=== PATIENT | male | born 1955 | race African-American/Black ===

== ENCOUNTER 2019-06-15 22:44 | Emergency (ER) | payer OTHER ==
[~2019-06-15] VITALS: Ht 185.4 cm; Wt 121.6 kg
[2019-06-15] MEDS ORDERED: ACCURETIC 20-21 EACH PO (23:09)
[2019-06-15] MEDS ORDERED: AZOPT OPHTH1 %/10 M1 OPHTHALMIC (23:10)
[2019-06-15] MEDS ORDERED: TRAVATAN Z5 ML OPHTHALMIC (23:13)
[2019-06-16 01:59] VITALS: BP 164/98
== END 2019-06-16 01:59 | disposition home or self-care (01) ==
LOC: ER 22:44
DX: M54.12 Radiculopathy, cervical region (principal); F17.210 Nicotine dependence, cigarettes, uncomplicated

== ENCOUNTER 2019-07-17 08:20 | Inpatient (IN) | payer OTHER ==
[2019-07-17] VITALS (15 sets, daily range): BP systolic 105–152; BP diastolic 67–97
[~2019-07-17] VITALS: Ht 185.4 cm; Wt 121.6 kg
[~2019-07-17 08:20] MED LIST: ACCURETIC 20-21 EACH PO; AZOPT OPHTH1 %/10 M1 OPHTHALMIC; TRAVATAN Z5 ML OPHTHALMIC
[2019-07-17 08:49] LABS: ABSOLUTE NEUTROPHILS 6.6 thou/uL (1.4-8.2); BASOPHILS 0.5 % (0.0-2.0); EOSINOPHILS 1.1 % (0.0-3.0); HEMOGLOBIN 14.7 gm/dL (14.0-18.0); LYMPHOCYTES 32.9 % (24.0-44.0); MCH 31.3 pg (26.0-34.0); MCHC 33.4 g/dL (28.0-37.0); MCV 93.6 fL (80.0-100.0); MONOCYTES 6.3 % (1.0-8.0); PLATELET COUNT 248 thou/uL (150-400); POLYS 59.2 % (36.0-66.0); RDW 14.6 % (10.5-14.5); WBC 11.1 thou/uL (4.0-11.0)
[2019-07-17 08:53] LABS: ANION GAP 8 mmol/L (7-16); BUN 14 mg/dL (7-18); CALCIUM 9.1 mg/dL (8.5-10.1); CHLORIDE 101 mmol/L (98-107); CO2 30 mmol/L (21-32); CREATININE 1.1 mg/dL (0.7-1.3); GLUCOSE 170 mg/dL (74-106); SODIUM 139 mmol/L (136-145)
[2019-07-17 08:56] LABS: APTT 27.5 Seconds (24.5-32.8); PROTIME 10.3 Seconds (9.3-11.4)
[2019-07-17 09:03] LABS: ALBUMIN 3.7 g/dL (3.4-5.0); DIRECT BILIRUBIN 0.2 mg/dL (<0.1-0.3); SGOT 13 U/L (15-37); SGPT 17 U/L (30-65); TOTAL BILIRUBIN 0.9 mg/dL (<0.1-1.0); TROPONIN-I <0.06 ng/mL (<0.06)
[2019-07-17 09:11] LABS: ALBUMIN 3.8 g/dL (3.4-5.0); TOTAL PROTEIN 7.6 g/dL (6.4-8.2)
[2019-07-17 09:53] LABS: TSH 3.146 uIU/mL (0.358-3.740)
[2019-07-17 11:12] LABS: CHOLESTEROL 162 mg/dL (<200); HDL CHOLESTEROL 32 mg/dL (>40); LDL CHOLESTEROL 103 mg/dL (<100); TC:HDL 5.1 Ratio (Not establshd); TRIGLYCERIDE 139 mg/dL (<150); VLDL 28 mg/dL (<40)
[2019-07-17] MEDS ORDERED: LIPITOR80 MG PO (11:24)
[2019-07-17] MEDS ORDERED: VIAGRA50 MG PO (11:26)
--- NOTE | 2019-07-17 12:23 | CATHLAB ---
[facility] [place] [place] [address] [place] [address] INVASIVE PROCEDURE REPORT Name: JESSICA VEGA Room #: 212-P ADM IN .R.#: [id number] Admission: 07/17/19 Attend Phys: Kin Butts, Discharge: Date of : 59 Report #: [id number] THIS REPORT FOR: //name// APPROVED REPORT Study performed: 07/17/2019 09:03:31 Patient Details Patient Status: ED Room #: The patient is a 64 year-old male Event Personnel Buddy Norton Clip Coater, Harmony Cronin RTR, OPEN HEARTH FURNACE LABORER Monitor, Roddy Up RN RN, Ricco Humphrey RTR Scrub, Toñito De Guzman RTR Scrub Procedures Performed Art Access - R femoral artery* Left Heart Cath w/or w/o Coronaries 9718872 [facility] ROGER Revasc AMI Total/Sub Single RCA C[address] w/wo Plasty Single OM 172003 Hemostasis w/ Angioseal 58234 Initial Mod Sed Same Phys/QHP Gr5y 400382 02028 Mod Sed Same Phys/QHP Ea 520587 Indication STEMI (>0 to less than or equal to 6 hours), Chest pain Risk Factors Arterial HypertensionDysplipidemia , Hypercholesterolemia, Diabetes Tobacco History () Procedure Narrative The Right Groin^ was infiltrated with 1% Lidocaine subcutaneous anesthesia. A PINNACLE 6FR Sheath #[id number] sheath was inserted into the RFA^. Coronary angiography was performed using coronary diagnostic catheters. The right coronary system was accessed and visualized with a JR4 catheter. The left coronary system was accessed and visualized with a JL4 catheter. The left ventricle was accessed and visualized with a angled pigtail catheter. Left ventricular/Aortic Valve gradient assessed via catheter pullback. Left ventriculogram was performed in 30 degree projection. Closure device was deployed with a 6 Fr ANGIOSEAL 6FR #[id number]. The patient tolerated the procedure well and there were no complications associated with the procedure. There was no hematoma. Intraoperative Conscious Sedation [address] [address] INVASIVE PROCEDURE REPORT Name: VEGAJESSICA SABRA Room #: 212-[facility] IN ..#: [id number] Admission: 07/17/19 Attend Phys: Kin Butts, Discharge: Date of : 59 Report #: [id number] Sedation start time: 09:23 Case end Time: 10:50 Fentanyl 50 mcg Versed 2.0 mg Fluoro Time: 15.30 minutes Dose: DAP 39266.60 cGycm2 4103 mGy Contrast Type and Amount: Visipaque 220 ml Coronary Angiography The patient's coronary anatomy is co- dominant. Diagnostic Cath Left Main Normal left main LAD 40-50% proximal LAD stenosis. Mild diffuse nonocclusive plaquing throughout the remainder of the LAD. Severe, sequential subtotal stenoses involving the very apical portion of the LAD. Diagonal 1 Large proximal diagonal branch with mild plaquing Circumflex Moderately large codominant circumflex. OM1 The first marginal branch exhibited a 99% mid vessel stenosis OM2 Small distally arising second marginal branch with moderate plaquing Right Coronary Complete occlusion of the mid right coronary. Long diffusely diseased, severe stenosis involving most of the mid and proximal portions of the right coronary. Left Ventriculography The left ventricle is normal in size with normal contractility. The left ventricular ejection fraction is estimated to be 55-60%. Left ventricular wall motion abnormalities are present. There is 1+ mitral insufficiency. Distal inferior wall hypokinesis Hemodynamics The aortic pressure is 163/98 mmHg with a mean of 124 mmHg. The left ventricular pressure is 120/14 mmHg with a mean of mmHg. The left ventricular end diastolic pressure is 28 mmHg. PCI Technique Lesion Anticoagulation was achieved with Heparin, Integrilin. Patient was preloaded with Effient. Percutaneous coronary intervention was performed on the mid right coronary artery. The lesion stenosis prior to intervention was 100% with SOTERO 0 flow. A LAUNCHER 6FR JR 4 #[id number] Guide Catheter was used to engage the right coronary ostium. A Luge Wire .014 x 182CM #[id number] Interventional Guidewire was used to [facility] [place] [place] [address] [place] [address] INVASIVE PROCEDURE REPORT Name: JESSICA VEGA Room #: 212-P ADM IN M.R.#: [id number] Admission: 07/17/19 Attend Phys: Kin Butts, Discharge: Date of : 59 Report #: [id number] cross the lesion. BALLOON DILATION A Balloon catheter Euphora RX 2.25 x 10 #[id number] was inserted and inflated up to 8.00atm for 24seconds. Repeat angiography revealed the following post-dilatation results: SOTERO 2 flow restored following angioplasty. Severe diffuse disease throughout most of the right coronary. Additional Inflation: 14.00atm for 22seconds. Additional Inflation: 14.00atm for 27seconds. Additional inflation: 16 rosa for 10 seconds Additional inflation: 15 rosa for 29 seconds STENT DEPLOYMENT A drug-eluting stent RESOLUTE SUNNY RX 2.75 X 38 #[id number] was inserted and inflated up to 14.00atm for 29seconds. POST STENT DEPLOYMENT BALLOON DILATION A Balloon catheter TREK NC RX 3.0 X 15 #[id number] was inserted and inflated up to 10.00atm for 30seconds. Additional Inflation: 14.00atm for 31seconds. Additional Inflation: 18.00atm for 31seconds. Final angiography reveals 0 % stenosis with SOTERO 3 flow. PCI Technique Lesion 2 Percutaneous Coronary Intervention was performed on the proximal right coronary artery. The lesion stenosis prior to intervention was 90% with SOTERO 3 flow. A LAUNCHER 6FR JR 4 #[id number] Guide Catheter was used to engage the ostium. A Luge Wire .014 x 182CM #[id number] Interventional Guidewire was used to cross the lesion. Stent Deployment A drug-eluting stent RESOLUTE SUNNY RX 3.0 X 26 #[id number] was inserted and inflated up to 16.00atm for 27seconds. Post Stent Deployment Balloon Dilation A Balloon catheter TREK NC RX 3.0 X 15 #[id number] was inserted and inflated up to 22.00atm for 25seconds. Final angiography reveals 0 % stenosis with SOTERO 3 flow. Comments This 3.0 x 26 mm Resolute was placed in sequence with the mid right coronary stent. Both stents were postdilated with a noncompliant balloon. PCI Technique Lesion [address] [facility] [place] [place] [address] [address] INVASIVE PROCEDURE REPORT Name: JESSICA VEGA Room #: 212-P [facility] IN .R.#: [id number] Admission: 07/17/19 Attend Phys: Kin Butts, Discharge: Date of : 59 Report #: [id number] Percutaneous Coronary Intervention was performed on the first obtuse marginal branch segment. The lesion stenosis prior to intervention was 99% with SOTERO 3 flow. A LAUNCHER 6FR EBU 3.5 #510791 Guide Catheter was used to engage the ostium. A Luge Wire .014 x 182CM #[id number] Interventional Guidewire was used to cross the lesion. Balloon Dilation A Balloon catheter Euphora RX 2.25 x 10 #[id number] was inserted and inflated up to 8.00atm for 15seconds. Additional Inflation: 10.00atm for 28seconds. Additional Inflation: 10.00atm for 29seconds. Additional inflation: 10 rosa for 31 seconds Stent Deployment A drug-eluting stent RESOLUTE SUNNY RX 2.25 X 18 #[id number] was inserted and inflated up to 16.00atm for 30seconds. A second drug-eluting stent Resolute Sunny RX 2.5 x 8 was inserted proximal to 2.25 x 18 Resolute [place] and inflated up to 12 rosa for 30 seconds. Post Stent Deployment Balloon Dilation A Balloon catheter TREK NC RX 2.5 X 12 #[id number] was inserted and inflated up to 12.00atm for 29seconds. Additional Inflation: 16.00atm for 38seconds. Additional Inflation: 16.00atm for 28seconds. Final angiography reveals 0 % stenosis with SOTERO 3 flow. Conclusion 1. Normal global left ventricular systolic function with distal inferior wall hypokinesis. Ejection fraction 55%. 2. Normal left main 3. Left anterior descending with 40-50% proximal stenosis. Severe sequential apical LAD disease (very small vessel) 4. Codominant circumflex. Subtotal mid first marginal branch stenosis successfully stented with a 2.25 x 18 mm Resolute, and in sequence to this proximally a 2.5 x 8 mm Resolute. 5. Occlusion of the mid right coronary. Severe disease involving the entire right coronary stented with a 2.75 x 38 mm Resolute distally and in sequence more proximally a 3.0 x 26 mm Resolute. All stents were postdilated with a noncompliant balloon. Recommendations Smoking Cessation Cardiac Rehabilitation Referral [address] [address] INVASIVE PROCEDURE REPORT Name: JESSICA VEGA Room #: 212-P [facility] IN ..#: [id number] Admission: 07/17/19 Attend Phys: Kin Butts, Discharge: Date of : 59 Report #: [id number] Medications Administered LUCILLE Inhibitor (any) Aspirin (any) Beta Johanna (any) Statin (any) Prasugrel <ELECTRONICALLY SIGNED> By: Buddy Norton MD, FACC 07/17/19 122 21 21 Buddy Norton MD, FAC /INF
--- NOTE | 2019-07-17 12:29 | EKG ---
[address] [address] ELECTROCARDIOGRAM REPORT Name: SILVIAJESSICA SABRA Room #: 212-P ADM IN M.R.#: [id number] Admission: 07/17/19 Attend Phys: Kin Butts MD Discharge: Date of : 59 Report #: [id number] THIS REPORT FOR: //name// [facility] ED Test Date: 2019-07-17 Test Time: 08:28:12 Pat Name: JESSICA VEGA Department: Room: [facility] Gender: M State Game Protector: DAX : 1955 Requested By: Chanel Escobar Order Number: [id number] MD: Buddy Norton Measurements Intervals [place] Rate: 53 P: 38 WI: Y162 QRS: 69 QRSD: 104 T: 70 QT: 412 QTc: 387 Interpretive Statements Sinus rhythm Inferior infarct, acute (RCA) No previous ECG available for comparison Electronically Signed On 07-17-2019 12:29:39 CDT by Buddy Norton [email or web address] <ELECTRONICALLY SIGNED> By: Buddy Norton MD, [facility] 07/17/19 1229 0828 7 Buddy Norton MD, FACC /EPI
--- NOTE | 2019-07-17 18:07 | NUR ---
PATIENT ARRIVED FROM PROCESS MOLD TECHNICIAN, ALERT AND ORIENTED X4. FAMILY AT BEDSIDE. RT GRION SITE IS D/C/I. MRONING MEDS GIVEN, AND BP IS STABLE, SEE POST CARDIAC FLOW SHEET. ADMISSION COMPLETED AND WILL COTNINUE WITH POC.
[2019-07-17 20:52] LABS: MAGNESIUM 1.9 mg/dL (1.8-2.4); POTASSIUM 3.5 mmol/L (3.5-5.1)
[2019-07-18] VITALS (8 sets, daily range): BP systolic 86–108; BP diastolic 43–69
[2019-07-18 02:05] LABS: GLYCOHEMOGLOBIN (HGB A1C) 5.7 % (4.8-5.6)
--- NOTE | 2019-07-18 04:45 | NUR ---
RECEIVED PT'S CARE AT 1930; PT. ON CHAIR; AOX4; C/O NAUSEA; VOMITING; NO PRN MEDICATION DUE; NO NOTIFIED; ORDERS RECEIVED; PER DIANETIC COUNSELOR ORDER SCHEDULED PO POTASSIUM & MAG CANCEL DUE TO VOMITING; K & Mag WITHDRAW; NO NEED TO BE REPLACEMENT; PT. RESTLESS; ST. FEELING ANXIOUS; DIANETIC COUNSELOR NOTIFIED; ORDERS RECEIVED; VS WNL; R. GROIN AREA NO HEMATOMA AT SHIFT CHANGE & THROUGH THE NIGHT; AT MIDNIGHT HR ON THE LATEs 40 & 50s; PT. RESTING; NO C/O SOB OR HEADACHE; R GROIN AREA D/C/I; MONITORING; EDUCATED ABOUT FALL PREVENTIONS; ST. UNDERSTANDING; BED ALARM ON DUE TO WEAKNESS; ST. UNDERSTANDING; MONITORING; ASSESSMENT CHARGED; FOLLOWING POC; WILL PASS ON REPORT.
[2019-07-18 06:07] LABS: CALCIUM 8.9 mg/dL (8.5-10.1); CREATININE 0.9 mg/dL (0.7-1.3); POTASSIUM 3.9 mmol/L (3.5-5.1); TOTAL BILIRUBIN 1.3 mg/dL (<0.1-1.0); TOTAL PROTEIN 6.3 g/dL (6.4-8.2)
[2019-07-18 06:09] LABS: TROPONIN-I 35.23 ng/mL (<0.06)
[2019-07-18] MEDS ORDERED: EFFIENT10 MG PO (07:55)
[2019-07-18] MEDS ORDERED: ASPIRIN325 PO (07:55)
[2019-07-18] MEDS ORDERED: METOPROLOL SUCC25 M1 PO (07:55)
--- NOTE | 2019-07-18 08:18 | HC ---
[facility] [place] [address] CONSULTATION Name: JESSICA VEGA Room #: 212-P ADM IN M.R.#: [id number] Admission: 07/17/19 Attend Phys: Kin Butts MD Discharge: Date of : 59 Report #: [id number] THIS REPORT FOR: //name// CC: FAM unknown Kin Butts DATE OF SERVICE: 07/17/2019 REASON FOR CONSULTATION: Chest pressure. HISTORY OF PRESENT ILLNESS: The patient is a 64-year-old gentleman with history of tobacco dependency and hypertension. He awakened this morning around 6:00 a.m. with midsternal chest tightness and "heartburn." He has never had this feeling before. He presented to the Emergency Department where an EKG at 8:28 a.m. demonstrated sinus bradycardia with inferior injury pattern. I was asked to see him in this regard. He has ongoing chest pressure. No heart failure symptoms including orthopnea, paroxysmal nocturnal dyspnea or lower extremity edema. No history of palpitations, near syncope or syncope. ALLERGIES: No known drug allergies. MEDICATIONS: Include a cholesterol medicine that he just started and does not know the name, Accuretic 20/25 one daily and eye drops for glaucoma. PAST MEDICAL HISTORY: Past history and medical records have been reviewed and include a history of a right shoulder surgery, right knee arthroscopy, eye surgery, hypertension and dyslipidemia. SOCIAL HISTORY: He is an ongoing smoker. FAMILY HISTORY: Unremarkable for premature coronary artery disease. REVIEW OF SYSTEMS: All systems negative except as that noted above. PHYSICAL EXAMINATION: GENERAL: Reveals a pleasant gentleman in mild ongoing distress. VITAL SIGNS: Blood pressure is 138/80, heart rate of 50 and regular. He is afebrile. HEENT: There are neither xanthelasma, subcutaneous xanthomata, oral mucosal or digital cyanosis or kyphoscoliosis present. CHEST: Clear to auscultation and percussion. CARDIAC: Regular rate and rhythm with normal S1, S2. Heart sounds are distant. ABDOMEN: Soft and nontender. EXTREMITIES: Without cyanosis, clubbing or edema. Radial pulses are 2+. NEUROLOGIC: He is alert with a nonfocal exam. [facility] [address] [place] [address] CONSULTATION Name: JESSICA VEGA Room #: 212-P [facility] IN .R.#: [id number] Admission: 07/17/19 Attend Phys: Kin Butts MD Discharge: Date of : 59 Report #: [id number] LABORATORY DATA: EKG, sinus bradycardia with inferior injury pattern. Electrolytes remain pending. White count 11.1, hemoglobin 14, hematocrit 44 and platelet count 248. IMPRESSION: 1. Acute inferior myocardial infarction. 2. Hypertension. 3. Dyslipidemia. 4. Tobacco dependency. RECOMMENDATIONS: 1. Aspirin, anticoagulation, nitrates. Holding beta blockade for now due to bradycardia. 2. Urgent coronary angiography. I have discussed the angiographic procedure in detail including its associated risks as well as the risks associated with a percutaneous intervention. After a thorough discussion of the procedure, its risks and alternatives and after answering his questions, he is agreeable to proceeding. 63 cc time <ELECTRONICALLY SIGNED> By: Buddy Norton MD, FACC 07/18/19 0818 0855 2313 Buddy Norton MD, FACC /nt
--- NOTE | 2019-07-18 08:39 | EKG ---
[address] [place] [address] ELECTROCARDIOGRAM REPORT Name: SILVIAJESSICA SABRA Room #: 212- ADM IN M.R.#: [id number] Admission: 07/17/19 Attend Phys: Kin Butts MD Discharge: Date of : 59 Report #: [id number] THIS REPORT FOR: //name// [facility] Test Date: 2019-07-17 Test Time: 12:47:55 Pat Name: JESSICA VEGA Department: Room: [facility] Gender: M Burring Wheel Operator: michael : 1955 Requested By: Buddy Norton Order Number: [id number] MD: Buddy Norton Measurements Intervals [place] Rate: 67 P: 47 MN: 178 QRS: -36 QRSD: 89 T: -42 QT: 411 QTc: 434 Interpretive Statements Sinus rhythm Ventricular premature complex Inferior infarct, recent Compared to ECG 07/17/2019 08:28:12 Ventricular premature complex(es) now present Inferior ST elevation no longer present Electronically Signed On 07-18-2019 8:39:31 CDT by Buddy Norton [email or web address] <ELECTRONICALLY SIGNED> By: Buddy Norton MD, [facility] 07/18/19 0839 1247 1247 Buddy Norton MD, [facility] /EPI
--- NOTE | 2019-07-18 08:49 | EKG ---
[place] [address] [facility] [place] [address] ELECTROCARDIOGRAM REPORT Name: SILVIAJESSICA SABRA Room #: 212-P ADM IN M.R.#: [id number] Admission: 07/17/19 Attend Phys: Kin Butts MD Discharge: Date of : 59 Report #: [id number] THIS REPORT FOR: //name// [facility] Test Date: 2019-07-18 Test Time: 07:35:08 Pat Name: JESSICA VEGA Department: Room: 212 P Gender: M Silo Man: LUCIEN : 1955 Requested By: Buddy Norton Order Number: [id number] MD: Buddy Norton Measurements Intervals [place] Rate: 55 P: 34 [place]: 154 QRS: -29 QRSD: 91 T: -51 QT: 469 QTc: 449 Interpretive Statements Sinus bradycardia Inferior infarct, recent Compared to ECG 07/17/2019 08:28:12 Premature ventricular complexes are no longer present Electronically Signed On 07-18-2019 8:49:35 CDT by Buddy Norton [email or web address] <ELECTRONICALLY SIGNED> By: Buddy Norton MD, [facility] 07/18/19 0849 4 Buddy Norton MD, [facility] /EPI
--- NOTE | 2019-07-18 09:22 | 2DMMODE ---
[facility] [address] [place] [address] 2 D/M-MODE ECHOCARDIOGRAM Name: SILVIAJESSICA SABRA Room #: 212-P ADM IN M.R.#: [id number] Admission: 07/17/19 Attend Phys: Kin Butts, Discharge: Date of : 59 Report #: [id number] THIS REPORT FOR: //name// APPROVED REPORT Study performed: 07/18/2019 08:16:46 EXAM: Comprehensive 2D, Doppler, and color-flow Echocardiogram Patient Location: Echo lab Room #: [facility] [place] [facility] [place] Status: routine BSA: 2.44 HR: 55 bpm BP: 100/69 mmHg Other Information Study Quality: Adequate Indications Hypertension/HDD STEMI, stents 07/17/19 2D Dimensions RVDd: 43.81 mm IVSd: 11.99 (7-11mm) LVOT Diam: 23.11 (18-24mm) LVDd: 47.43 mm PWd: 12.94 (7-11mm) Ascending Ao: 34.62 (22-36mm) LVDs: 33.40 (25-40mm) Aortic Root: 28.39 mm IVC: 26.00 mm Volumes Left Atrial Volume (Systole) Single Plane 4CH: 49.23 mL Single Plane 2CH: 54.44 mL LA ESV Index: 23.00 mL/m2 Aortic Valve AoV Peak Jese.: 1.19 m/s AO Peak Gr.: 5.67 mmHg LVOT Max P.99 mmHg LVOT Max V: 1.00 m/s QUAN Vmax: 3.52 cm2 Mitral Valve E/A Ratio: 2.0 MV Decel. Time: 215.93 ms MV E Max Jese.: 0.83 m/s [facility] [address] [place] [address] 2 D/M-MODE ECHOCARDIOGRAM Name: NAKUL VEGAONY SABRA Room #: [facility] [place] [facility] [place] IN .R.#: [id number] Admission: 07/17/19 Attend Phys: Kin Butts, Discharge: Date of : 59 Report #: [id number] MV A Jese.: 0.41 m/s MV PHT: 62.62 ms IVRT: 76.12 ms Pulmonary Valve PV Peak Jese.: 0.85 m/s PV Peak Gr.: 2.90 mmHg Pulmonary Vein P Vein S: 0.45 m/s P Vein A: 0.24 m/s P Vein D: 0.30 m/s P Vein A Dur.: 114.2 msec P Vein S/D Ratio: 1.50 Tricuspid Valve TR Peak Jese.: 2.41 m/s RAP Estimate: 15.00 mmHg TR Peak Gr.: 23.25 mmHg PA Pressure: 38.00 mmHg Left Ventricle The left ventricle is normal size. There is normal LV segmental wall motion. Mild concentric left ventricular hypertrophy. The left ventricular systolic function is normal. The left ventricular ejection fraction is within the normal range. LVEF is 55-60%. The left ventricular diastolic function is normal. Right Ventricle The right ventricle is normal size. The right ventricular systolic function is normal. Atria The left atrium size is normal. Right atrium is at the upper limits of normal. Aortic Valve The aortic valve is normal in structure. No aortic regurgitation is present. There is no aortic valvular stenosis. Mitral Valve The mitral valve is normal in structure. Trace to mild mitral regurgitation. No evidence of mitral valve stenosis. Tricuspid Valve The tricuspid valve is normal in structure. Mild tricuspid regurgitation. PAP is estimated at 30 mmHg. Pulmonic Valve The pulmonary valve is normal in structure. Mild pulmonic [address] [address] 2 D/M-MODE ECHOCARDIOGRAM Name: VEGAJESSICA SABRA Room #: 212-P [facility] IN ..#: [id number] Admission: 07/17/19 Attend Phys: Kin Butts, Discharge: Date of : 59 Report #: [id number] regurgitation. Great Vessels The aortic root is normal in size. IVC is dilated and collapses <50% with inspiration. Pericardium There is no pericardial effusion. <Conclusion> The left ventricular systolic function is normal. There is normal LV segmental wall motion. LVEF is 55-60%. Normal diastolic function The aortic valve is normal in structure. No aortic regurgitation or stenosis The mitral valve is normal in structure. Trace to mild mitral regurgitation. Mild tricuspid regurgitation. Pulmonary artery pressure estimated at 35 mmHg. There is no pericardial effusion. <ELECTRONICALLY SIGNED> By: Buddy Norton MD, [facility] 07/18/19920 0 0 Buddy Norton MD, FACC /INF
--- NOTE | 2019-07-18 17:24 | NUR ---
ALERT AND ORIENTED X4. WALKING THE HALLWAYS. BP SOFT AND OTHER VS STABLE. RT GRION REMAINS INTACT. DENIES ANY CP OR DISCOMFORT. SB-SR AND SA ON THE MONITOR. PROGRESSING TOWARDS GOALS. POC
[2019-07-19 00:25] VITALS: BP 108/62
--- NOTE | 2019-07-19 03:00 | NUR ---
ASSESSMENT DOCUMENTED.PT BEEN RESTING IN NO ACUTE DISTRESS.VSS.S/P CARDIC IDRIS W/STENTS PLACED.PT TO DISCHARGE TO HOME TODAY.NO CONCERNS VOICED.
[2019-07-19 06:17] VITALS: BP 87/58
[2019-07-19] MEDS ORDERED: LISINOPRIL10 MG PO (08:25)
[2019-07-19 10:47] VITALS: BP 103/67
--- NOTE | 2019-07-19 12:18 | NUR ---
ASSESSMENT CHARTED. PT ALERT AND ORIENTED WITH FORGETFULNESS. DENIED HAVING PAIN OR DISCOMFORT. ORDERS GIVEN TO DISCHARGE PT TO HOME. DISCHARGE INSTRUCTIONS GIVEN TO PT. PT VERBERLISED UNDERSTANDING. PT LEFT THE FACILITY ACCOMPANIED BY THE BROTHER.
== END 2019-07-19 12:23 | disposition home or self-care (01) | DRG 246 ==
LOC: ER 08:20 → EROBS 08:41 → 2N 08:41 → ENTRNSPT 07-19 11:56 → EDTRNSPTSTS 07-19 11:59 → 2N 07-19 12:23
PROVIDERS: Emergency Medicine; Internal Medicine; Nurse Practitioner Acute Care; ADMIT Internal Medicine
PROC: B215YZZ Fluoroscopy of Left Heart using Other Contrast (ICD-10-PCS; principal; 2019-07-17)
PROC: 4A023N7 Measurement of Cardiac Sampling and Pressure, Left Heart, Percutaneous Approach (ICD-10-PCS; principal; 2019-07-17)
PROC: 027137Z Dilation of Coronary Artery, Two Arteries with Four or More Drug-eluting Intraluminal Devices, Percutaneous Approach (ICD-10-PCS; principal; 2019-07-17)
PROC: B211YZZ Fluoroscopy of Multiple Coronary Arteries using Other Contrast (ICD-10-PCS; principal; 2019-07-17)
DX: I21.19 ST elevation (STEMI) myocardial infarction involving other coronary artery of inferior wall (principal); I10 Essential (primary) hypertension; E78.5 Hyperlipidemia, unspecified; F17.210 Nicotine dependence, cigarettes, uncomplicated; R00.1 Bradycardia, unspecified; E87.6 Hypokalemia; E11.65 Type 2 diabetes mellitus with hyperglycemia; Z79.899 Other long term (current) drug therapy; Z88.8 Allergy status to other drugs, medicaments and biological substances; Z82.49 Family history of ischemic heart disease and other diseases of the circulatory system; Z71.6 Tobacco abuse counseling
CPT/HCPCS: 10081

== ENCOUNTER 2019-11-26 12:13 | Emergency (ER) | payer OTHER ==
[~2019-11-26] VITALS: Ht 185.4 cm; Wt 120.2 kg
--- NOTE | ~2019-11-26 | EKG ---
[facility] [address] ELECTROCARDIOGRAM REPORT Name: JESSICA VEGA Room #: DEP BLAINE Cabrera#: [id number] Admission: 11/26/19 Attend Phys: Discharge: 11/26/19 Date of : 59 Report #: [id number] THIS REPORT FOR: cc: JESSICA INTERIANO [facility] - Family physician unknown Sirisha Grimm MD ~ THIS REPORT FOR: //name// [facility] ED Test Date: 2019-11-26 Test Time: 12:34:38 Pat Name: [facility] Department: Room: Gender: M Block Placer: SUNNY : 1955 Requested By: Gabriel Nieves Order Number: [id number] MD: Measurements Intervals [place] Rate: 65 P: 39 OR: 165 QRS: -17 QRSD: 87 T: -29 QT: 404 QTc: 421 Interpretive Statements Sinus rhythm Probable left atrial enlargement Inferior infarct, age indeterminate Consider anterior infarct No previous ECG available for comparison [email or web address] By: 1234 1234 Epiphany Epiphany, /EPI
[~2019-11-26 12:13] MED LIST changes: +ASPIRIN325 PO; +EFFIENT10 MG PO; +LIPITOR80 MG PO; +LISINOPRIL10 MG PO; +METOPROLOL SUCC25 M1 PO; +VIAGRA50 MG PO
[2019-11-26] MEDS ORDERED: HYDROCHLOROTHIA25 M2 PO (13:26)
[2019-11-26] MEDS ORDERED: NORCO 5-325 TA1 EAC1 PO (13:26)
[2019-11-26 14:50] VITALS: BP 122/76
== END 2019-11-26 14:52 | disposition home or self-care (01) ==
LOC: ER 12:13
DX: I10 Essential (primary) hypertension (principal); K08.89 Other specified disorders of teeth and supporting structures; F17.210 Nicotine dependence, cigarettes, uncomplicated

== ENCOUNTER → 2019-11-30 | Outpatient (CLI) | payer OTHER ==
[~2019-11-30] MED LIST changes: +HYDROCHLOROTHIA25 M2 PO; +NORCO 5-325 TA1 EAC1 PO
== END ==
LOC: SJCVCIMAG 07:50
DX: I65.23 Occlusion and stenosis of bilateral carotid arteries (principal); I77.811 Abdominal aortic ectasia; I25.10 Atherosclerotic heart disease of native coronary artery without angina pectoris; I10 Essential (primary) hypertension; E78.5 Hyperlipidemia, unspecified; F17.200 Nicotine dependence, unspecified, uncomplicated

== ENCOUNTER 2020-12-26 13:46 | Emergency (ER) | payer OTHER ==
[~2020-12-26] VITALS: Ht 185.4 cm; Wt 117.9 kg
[2020-12-26] MEDS ORDERED: LISINOPRIL-HCT1 EAC2 PO (14:03)
[2020-12-26] MEDS ORDERED: VITAMIN D325 MC5 PO (14:05)
[2020-12-26] MEDS ORDERED: AMLODIPINE BESY10 MG PO (14:06)
[2020-12-26] MEDS ORDERED: VITAMIN C500 M1 PO (14:08)
[2020-12-26 14:35] LABS: URINE BILIRUBIN NEGATIVE (Negative); URINE BLOOD NEGATIVE (Negative); URINE CLARITY CLEAR; URINE COLOR YELLOW; URINE GLUCOSE-RANDOM* NEGATIVE (Negative); URINE KETONES NEGATIVE (Negative); URINE LEUKOCYTES-REFLEX NEGATIVE (Negative); URINE NITRITE-REFLEX NEGATIVE (Negative); URINE PROTEIN (DIPSTICK) NEGATIVE (Negative); URINE SPECIFIC GRAVITY 1.025 (1.005-1.035); URINE UROBILINOGEN 0.2 E.U./dl (0.2-1.0)
[2020-12-26 14:56] LABS: HEMATOCRIT 38.5 % (42.0-52.0); HEMOGLOBIN 12.9 gm/dL (14.0-18.0); MCH 30.7 pg (26.0-34.0); MCHC 33.6 g/dL (28.0-37.0); MCV 91.4 fL (80.0-100.0); RBC 4.22 mil/uL (4.50-6.00); RDW 14.4 % (10.5-14.5); WBC 8.8 thou/uL (4.0-11.0)
[2020-12-26 15:03] LABS: CALCIUM 9.3 mg/dL (8.5-10.1)
[2020-12-26 15:09] LABS: TOTAL BILIRUBIN 1.7 mg/dL (0.2-1.0); TOTAL PROTEIN 8.7 g/dL (6.4-8.2)
[2020-12-26 16:32] VITALS: BP 136/73
--- NOTE | 2020-12-26 17:44 | EKG ---
[place] [address] [address] [facility] [place] [address] ELECTROCARDIOGRAM REPORT Name: SILVIAJESSICA MONTAÑO Room #: DEP BLAINE Cabrera#: [id number] Admission: 12/26/20 Attend Phys: Discharge: 12/26/20 Date of : 59 Report #: [id number] [facility] ED Test Date: 2020-12-26 Test Time: 13:56:49 Pat Name: JESSICA VEGA Department: Room: Gender: Operations Liaison: alethea : 1955 Requested By: Linda Jackson Order Number: [id number] MD: Reji Pace Measurements Intervals [place] Rate: 67 P: 40 WV: 151 QRS: -10 QRSD: 90 T: -10 QT: 409 QTc: 432 Interpretive Statements Sinus rhythm Inferior infarct, age indeterminate Baseline wander in lead(s) II,aVF Compared to ECG 11/26/2019 12:34:38 Electronically Signed On 12-26-2020 17:44:09 PLATINUM AND PALLADIUM KETTLE TENDER by Reji Pace [email or web address] <ELECTRONICALLY SIGNED> By: Reji Pace MD 12/26/20 1744 1356 1356 Reji Pace MD /TAMRA
== END 2020-12-26 16:30 | disposition home or self-care (01) ==
LOC: ER 13:46
PROVIDERS: Nurse Practitioner Family
DX: R42 Dizziness and giddiness (principal); I10 Essential (primary) hypertension; F17.210 Nicotine dependence, cigarettes, uncomplicated; Z79.899 Other long term (current) drug therapy; Z79.82 Long term (current) use of aspirin

== ENCOUNTER → 2021-05-14 | Outpatient (CLI) | payer OTHER ==
[~2021-05-14] MED LIST changes: +AMLODIPINE BESY10 MG PO; +LISINOPRIL-HCT1 EAC2 PO; +VITAMIN C500 M1 PO; +VITAMIN D325 MC5 PO
== END ==
LOC: SJCVC 13:59
PROVIDERS: ATTEND Internal Medicine
DX: I25.10 Atherosclerotic heart disease of native coronary artery without angina pectoris (principal); I65.23 Occlusion and stenosis of bilateral carotid arteries; E78.5 Hyperlipidemia, unspecified; I10 Essential (primary) hypertension; I25.2 Old myocardial infarction; F17.201 Nicotine dependence, unspecified, in remission; Z79.82 Long term (current) use of aspirin; Z79.899 Other long term (current) drug therapy

== ENCOUNTER → 2021-11-14 | Outpatient (CLI) | payer OTHER | LOC: SJCVC 13:41 | PROVIDERS: ATTEND Internal Medicine | DX: I25.10 Atherosclerotic heart disease of native coronary artery without angina pectoris (principal); I65.23 Occlusion and stenosis of bilateral carotid arteries; E78.5 Hyperlipidemia, unspecified; I10 Essential (primary) hypertension; F17.201 Nicotine dependence, unspecified, in remission; M54.10 Radiculopathy, site unspecified; Z79.82 Long term (current) use of aspirin; Z79.899 Other long term (current) drug therapy ==